=== PATIENT | male | born 2000 | race Two or more races ===

== ENCOUNTER 2024-05-17 23:50 | Emergency (ER) | payer BC, SELFPAY ==
[2024-05-18 00:15] VITALS: BP 166/92; PULSE 69; TEMP 36.9; O2SAT 95; BMI 34.3
--- NOTE | 2024-05-18 00:32 | PC.NURSE ---
this patient complains of under a lot of stress, working and going to college, this patient denies suicidal and homicidal thoughts and never has any in the past. this patient voices no other complaints and shows no signs of distress
--- NOTE | 2024-05-18 00:37 | PC.NURSE ---
Pt arrives stating that he just wants his mental health checked. Pt states that he just does not feel like he can correct himself States that when he was younger he used to be able to correct himself but now he is working night time nanny and in college and just feels like he cant get everything correct. Pt states that his mind is racing all the time. Pt states that he was diagnosed with ADHD as a child but did not take any meds because he as raised by his grandpa who did not believe in meds or trust health care. Pt states that he has 2 papers that are due tonight by midnight and he just could not get his thoughts together because his mind was racing. Pt messaged his professor and told him that he was going to be late turning it in. Pt states that he knows the consequences and accepts it. Pt does jump around when talking to him is triage but then pt will apologize for jumping around in his conversation. Pt remains pleasant and cooperative and gets tearful when talking. Pt again states that he just wants to get his mental health checked. When doing the suidical risk questions, pt states that he felt suicidal a few years ago when he was losing his apartment and had to move in with his mom. Pt states that they did not have a good relationship. Pt states that he did not act on a plan and was not able to make a plan. Pt jokes that his mind races to much to make a plan. Pt states that he has had problems sleeping but it because he can not shut his mind off.
--- NOTE | 2024-05-18 00:48 | ECG_ITS ---
[facility] Test Date: 2024-05-18 Pat Name: MATT STEVENSON Department: Room: - Gender: Male Product Development Specialist: : 2000 Requested By: [id number] Order Number: [id number] Reading MD: VIJI LUCAS Measurements Intervals [place] Rate: 55 P: 41 OK: 112 QRS: 85 QRSD: 108 T: 45 QT: 388 QTc: 377 Interpretive Statements 1100 Sinus rhythm 1102 Sinus arrhythmia 2210 Short OK interval 9150 abnormal ECG No previous ECG available for comparison Electronically Signed On 05-19-2024 5:28:12 EST by VIJI LUCAS
--- NOTE | 2024-05-18 00:51 | ED.PSYCH1 ---
HPI - Psych General Chief Complaint: Psychiatric Symptoms Stated Complaint: MENTAL HEALTH ISSUE Time Seen by Provider: 05/18/24 00:15 Source: Reports patient Mode of arrival: walk-in Limitations: Reports no limitations History of Present Illness HPI Narrative: This 24-year-old male presents for evaluation of several mental health issues. The patient is currently working full-time and going to school part-time. He started school last June. He is currently taking 1 class at a time. He states that he was working on a presentation for tomorrow but after reading the paragraphs and attempting to start answering the questions his mind started wandering. He states he cannot stop his mind from wandering and is not able to complete everything he needs to complete. He states he was diagnosed with ADHD when he was younger but he was raised by his grandfather who did not believe in traditional medicine or take him to physicians. He was given medication when he was younger but did not take it at that time. He denies that he is using any drugs or alcohol. He has having a hard time sleeping and states that he has been staying up all night to do his schoolwork and then going to work all day. He has been getting to work late and is at risk of losing his job. He currently lives alone and has been living alone on his own since he was 17. He states that due to his inability to focus at times he is falling behind in his bills and things are getting shut off. He denies any suicidal or homicidal ideation. He does have several anxiety related affectation's that are apparent while I am examining him. He admits to racing thoughts, inability to shut his mind off, poor impulse control at times which he does not wish to elaborate on. Related Data Home Medications ?Medication ?Instructions ?Recorded ?Confirmed No Known Home Medications 05/18/24 05/18/24 Allergies Allergy/AdvReac Type Severity Reaction Status Date / Time tide Allergy itching Uncoded 05/18/24 00:33 Review of Systems ROS Status of ROS 10 or more systems reviewed and unremarkable except as noted in history and below [facility] Medical History (Updated 05/18/24 @ 00:51 by Nila Dan MD) ADHD (attention deficit hyperactivity disorder) ?F90.9 - Attention-deficit hyperactivity disorder, unspecified type (ICD-10) Family History (Updated 05/18/24 @ 00:36 by Umm Chatterjee) Mother Depression Social History (Updated 05/18/24 @ 00:35 by Umm Chatterjee) Within the past year, how often did you have a drink containing alcohol: monthly or less Smoking status: Former smoker Do you use any of these nicotine containing products: vaping products Non-prescribed substance use: former substance user and cannabis (any form) Little interest or pleasure in doing things: nearly every day Feeling down, depressed, or hopeless: not at all Exam Narrative Exam Narrative: Vital signs and Nursing Notes reviewed: Patient is afebrile with a normal pulse, blood pressure is elevated at 166/92, he is not hypoxic with pulse ox of 95% on room air General: Well-appearing, well-groomed awake, alert, oriented, no acute distress, lying comfortably on the stretcher HEENT: Normocephalic atraumatic, mucous membranes are moist and pink, eyes are clear, normal conjunctiva, vision is grossly intact Chest: Lungs are clear to auscultation with good air entry, there is no wheezing rhonchi or rales appreciated no accessory muscle use, patient is speaking in complete sentences-no chest wall tenderness to palpation CVS: Regular rate and rhythm S1-S2, no murmurs rubs or gallops, pulses are brisk and equal bilaterally ABD: Soft, nondistended, nontender, no rebound guarding or rigidity, bowel sounds are normal, no pulsatile masses appreciated Extremities: Moving all extremities Skin: Normal in appearance without rash,pallor, petechiae or purpura Neuro: No focal deficits Psych: Patient admits to difficulty controlling his thoughts with at times poor impulse control, racing thoughts, poor sleeping patterns, difficulty concentrating and completing his tasks with associated anxiety and depression intermittently but denies any suicidal homicidal ideation, admits to a history of ADHD Constitutional Vital Signs, click to edit/add: Last Vital Signs Temp 98.5 F 05/18/24 00:15 Pulse 69 05/18/24 00:15 Resp 18 05/18/24 00:15 BP 166/92 H 05/18/24 00:15 Pulse Ox 95 05/18/24 00:15 O2 Del Method Room Air 05/18/24 00:15 Course Vital Signs Vital signs: Vital Signs Temperature 98.5 F 05/18/24 00:15 Pulse Rate 69 05/18/24 00:15 Respiratory Rate 18 05/18/24 00:15 Blood Pressure 166/92 H 05/18/24 00:15 Pulse Oximetry 95 05/18/24 00:15 Oxygen Delivery Method Room Air 05/18/24 00:15 Temperature 98.5 F 05/18/24 00:15 Pulse Rate 69 05/18/24 00:15 Respiratory Rate 18 05/18/24 00:15 Blood Pressure 166/92 H 05/18/24 00:15 Pulse Oximetry 95 05/18/24 00:15 Oxygen Delivery Method Room Air 05/18/24 00:15 MDM - Psych MDM Narrative Medical decision making narrative: This 24-year-old male presents for evaluation of intermittent racing thoughts, anxiety, depression, difficulty concentrating and having a hard time accomplishing tasks. He is working full-time and a part-time student. He is having a hard time sleeping. 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 He is now having second thoughts about doing that which is one of the reasons why he came [facility]. I explained to him that he should learn from this mistake. He is concerned that he may get fired. I agree that is a possibility could be a consequence of his actions however companies do not usually retaliate against arias alvarado's He is stable for discharge. He was given a dose of hydroxyzine to take tonight to help him relax and sleep and a prescription for hydroxyzine. He will be referred to outpatient [facility] behavioral health for further mental health evaluation Medical clearance labs are normal wit the exception of THC on h is drug screen. Lab Data Attestation: I reviewed the patient's lab results. Labs: Lab Results 05/18/24 05/18/24 Range/Units 01:10 01:19 WBC 9.8 (4.0-11.0) 10^3/uL RBC 5.12 (4.70-6.10) 10^6/uL Hgb 15.8 (14.0-18.0) g/dL Hct 45.3 (42.0-54.0) % MCV 88.5 (80.0-94.0) fL MCH 30.9 (25.9-34.0) pg MCHC 34.9 (29.9-35.2) g/dL RDW 12.0 (11.0-15.0) % Plt Count 315 (150-450) 10^3/uL MPV 9.8 (9.5-13.5) fL Neut % (Auto) 49.2 (43.0-75.0) % Lymph % (Auto) 41.5 (20.5-60.0) % Bladen % (Auto) 6.9 (1.7-12.0) % Eos % (Auto) 1.6 (0.9-7.0) % Baso % (Auto) 0.6 (0.2-2.0) % Neut # (Auto) 4.8 (1.4-6.5) 10^3/uL Lymph # (Auto) 4.1 H (1.2-3.8) 10^3/uL Bladen # (Auto) 0.7 (0.3-0.8) 10^3/uL Eos # (Auto) 0.2 (0.0-0.7) 10^3/uL Baso # (Auto) 0.1 (0.0-0.1) 10^3/uL Abs Immat Gran (auto) 0.02 (0.00-0.03) 10^3/uL Imm/Tot Granulo (auto) 0.2 (0.0-0.5) % Sodium 139 (136-145) mmol/L Potassium 3.6 (3.5-5.1) mmol/L Chloride 102 (98-107) mmol/L Carbon Dioxide 26.6 (21.0-32.0) mmol/L Anion Gap 14.0 BUN 11.0 (7.0-18.0) mg/dL Creatinine 0.91 (0.70-1.30) mg/dL Est GFR ( Amer) >60 (>=60 mL/min/1.73m^2) Est GFR (Non-Af Amer) >60 (>=60 mL/min/1.73m^2) BUN/Creatinine Ratio 12.1 Glucose 92 (74-106) mg/dL Calcium 9.0 (8.5-10.1) mg/dL Total Bilirubin 1.0 (0.2-1.0) mg/dL AST 12 L (15-37) U/L ALT 19 (16-63) U/L Alkaline Phosphatase 69 (46-116) U/L Total Protein 7.2 (6.4-8.2) g/dL Albumin 3.9 (3.4-5.0) g/dL Globulin 3.3 g/dL Albumin/Globulin Ratio 1.2 Salicylates <2.8 (<=19.9) mg/dL Urine Opiates Screen Negative (NEGATIVE) Ur Buprenorphine Scrn Negative (NEGATIVE) Ur Oxycodone Screen Negative (NEGATIVE) Urine Methadone Screen Negative (NEGATIVE) Acetaminophen <2.0 L (10.0-30.0) ug/mL Ur Barbiturates Screen Negative (NEGATIVE) U Tricyclic Antidepress Negative (NEGATIVE) Ur Phencyclidine Scrn Negative (NEGATIVE) Ur Amphetamines Screen Negative (NEGATIVE) U Methamphetamines Scrn Negative (NEGATIVE) U Benzodiazepines Scrn Negative (NEGATIVE) Urine Cocaine Screen Negative (NEGATIVE) U Cannabinoids Screen Positive A (NEGATIVE) Ethanol Quant <3 mg/dL ECG Data Attestation: I personally reviewed and interpreted this ECG as follows: (Sinus rhythm at 55 bpm, normal axis, normal intervals, no acute ST segment ovation or T wave inversion) Discharge Plan Discharge Chief Complaint: Psychiatric Symptoms Clinical Impression: Insomnia secondary to depression with anxiety Patient Disposition: Home, Self-Care Prescriptions / Home Meds: No Action No Known Home Medications Print Language: Romanian Referrals: Physician,Non-Staff, MD [Primary Care Provider] - 1 week Discharge Date/Time: 05/18/24 02:08
[2024-05-18 01:37] LABS: Basophils Absolute Auto 0.1 10^3/uL (0.0-0.1); Basophils Percent Auto 0.6 % (0.2-2.0); Eosinophils Absolute Auto 0.2 10^3/uL (0.0-0.7); Eosinophils Percent Auto 1.6 % (0.9-7.0); Hematocrit 45.3 % (42.0-54.0); Hemoglobin 15.8 g/dL (14.0-18.0); Immature Granulocytes Abs Auto 0.02 10^3/uL (0.00-0.03); Immature Granulocytes Pct Auto 0.2 % (0.0-0.5); Lymphocytes Absolute Auto 4.1 10^3/uL (1.2-3.8); Lymphocytes Percent Auto 41.5 % (20.5-60.0); Mean Corpuscular HGB Conc 34.9 g/dL (29.9-35.2); Mean Corpuscular Hemoglobin 30.9 pg (25.9-34.0); Mean Corpuscular Volume 88.5 fL (80.0-94.0); Mean Platelet Volume 9.8 fL (9.5-13.5); Monocytes Absolute Auto 0.7 10^3/uL (0.3-0.8); Monocytes Percent Auto 6.9 % (1.7-12.0); Neutrophils Absolute Auto 4.8 10^3/uL (1.4-6.5); Neutrophils Percent Auto 49.2 % (43.0-75.0); Platelet Count 315 10^3/uL (150-450); Red Blood Count 5.12 10^6/uL (4.70-6.10); White Blood Count 9.8 10^3/uL (4.0-11.0)
[2024-05-18 01:54] LABS: Amphetamine Screen Urine NEGATIVE (NEGATIVE); Barbiturates Screen Urine NEGATIVE (NEGATIVE); Benzodiazepines Screen Urine NEGATIVE (NEGATIVE); Buprenorphine Screen Urine NEGATIVE (NEGATIVE); Cannabinoid Screen Urine POSITIVE (NEGATIVE); Cocaine Screen Urine NEGATIVE (NEGATIVE); Methadone Screen Urine NEGATIVE (NEGATIVE); Methamphetamines Screen Urine NEGATIVE (NEGATIVE); Opiate Screen Urine NEGATIVE (NEGATIVE); Oxycodone Screen Urine NEGATIVE (NEGATIVE); Phencyclidine Screen Urine NEGATIVE (NEGATIVE); Tricyclic Antidepressant Urine NEGATIVE (NEGATIVE)
[2024-05-18] MEDS: HYDROXYZINE HCL 25 MG TABLET PO (01:56)
[2024-05-18 02:01] LABS: Alanine Aminotransferase 19 U/L (16-63); Albumin Globulin Ratio 1.2; Albumin Level 3.9 g/dL (3.4-5.0); Alkaline Phosphatase 69 U/L (46-116); Aspartate Amino Transferase 12 U/L (15-37); BUN Creatinine Ratio 12.1; Carbon Dioxide 26.6 mmol/L (21.0-32.0); Chloride 102 mmol/L (98-107); Estimated GFR (African America >60 (>=60 mL/min/1.73m^2); Estimated GFR (Non-African Ame >60 (>=60 mL/min/1.73m^2); Globulin 3.3 g/dL; Glucose 92 mg/dL (74-106); Potassium 3.6 mmol/L (3.5-5.1); Sodium 139 mmol/L (136-145); Total Protein 7.2 g/dL (6.4-8.2)
[2024-05-18 02:03] LABS: Acetaminophen <2.0 ug/mL (10.0-30.0); Salicylate <2.8 mg/dL (<=19.9)
[2024-05-18 02:04] LABS: Ethanol <3 mg/dL
--- NOTE | 2024-05-18 02:06 | PC.NURSE ---
i gave this patient verbal and paper discharge orders along with 1 Rx and 1 tab take home medication, this patient voices yes to understanding these. at time of discharge this patient voices no concerns and this patient shows no signs of distress
== END 2024-05-18 02:08 | disposition home or self-care (01) ==
PROVIDERS: Emergency Provider Emergency Medicine
DX: F41.8 Other specified anxiety disorders (principal); F51.05 Insomnia due to other mental disorder; Z87.891 Personal history of nicotine dependence
CPT/HCPCS: 36415; 80053; 80179; 80307; 80320; 80329; 85025; 93005; 99284

== ENCOUNTER 2025-01-25 10:38 | Emergency (ER) | payer OTHER, SELFPAY ==
[2025-01-25 10:43] VITALS: BP 149/98; PULSE 64; TEMP 37.2; O2SAT 97; BMI 35.9
--- OUTSIDE RECORDS SUMMARY | 2025-01-25 10:47 | XMS_ITS | Clinical Summary ---
Author Organization [facility] Address [address] [place] [address] Care Team Providers Care Chocolate Packer Name Role Phone Unavailable Primary Care Provider Unavailabl e Social History Tobacco UseTypesPacks/DayYears UsedDateSmoking Tobacco: Never AssessedSex and Gender InformationValueDate RecordedSex Assigned at BirthNot on fileLegal Sex Male06/05/2024 2:46 PM ESTGender IdentityNot on fileSexual OrientationNot on file Plan of Treatment Not on file Insurance
--- OUTSIDE RECORDS SUMMARY | 2025-01-25 10:47 | XMS_ITS | CCD ---
Author Organization [facility] Care Team Providers Care Cardiology Physician Assistant Name Role Phone DIAB ., JACOB Consulting Unavailable DIAB ., JACOB Admitting Unavailable DIAB ., JACOB Attending Unavailable BAILEY ., SANTI Admitting Unavailable BAILEY ., SANTI Attending Unavailable REQUEST, NONE LISTED Primary Care Unavaila ble BAILEY ., SANTI Consulting Unavailable Unavailable Primary Care Provider Unavaillionel e Destiny Mosley APRN Attending Provider [phone] Destiny Mosley Attending Unavailable Destiny Mosley Admitting Unavailable Cathleen Sanchez APRN Attending Provider NON STAFF Primary Care Provider Unavailabl e Medications Current Medications MedicationDrug Class(es)DatesSig (Normalized)Sig (Original)Elmer (No Known Home Meds) (3 sources)Start: 54-61-5485Ja Name (No Known Home Meds) Active July 10, 2024 12:00am Completed/Discontinued Medications MedicationDrug Class(es)DatesSig (Normalized)Sig (Original)24 hr buPROPion hydrochloride 150 mg extended release oral tablet (3 sources)AminoketoneStart: 07-10-2024 End: 43-17-2311upju 1 tablet by mouth every twenty-four hoursBupropion Hcl 150 mg tablet extended release 24 hr Discontinued MG PO July 10, 2024 12:00am 2024 12:50pmStart: 07-10-2024 End: 81-55-4234ewcn 1 tablet by mouth every twenty-four hoursBupropion Hcl 150 mg tablet extended release 24 hr Discontinued MG PO July 10, 2024 12:00am 2024 12:50pm Problems Problem ClassificationProblemDateDocumented DateEpisodic/ChronicImmunizations and screening for infectious disease (6 sources)At risk of sexually transmitted infection ; Translations: [Contact with and (suspected) exposure toinfections with a predominantly sexual mode of transmission]Onset: 19-20-620577739435-15-6412WuoeojscZgpab upper respiratory infections (5 sources)Acute pharyngitis, unspecified; Translations: [Streptococcal pharyngitis]Onset: 02-31-0584Zvtxbyna Results Test NameValueInterpretationReference RangeFacilityNo Panel InformationOrdered By: Cathleen Sanchez on 05-86-2726Gdhss Strep (POC)[facility] CampusChlamydia/GC/Trich NAAon 76-16-2538Falxfmyab Trachomotis, NAANegative NormalNegativeThe [facility] Physician GroupComment on above:Performed By: #### GCCHLAMTRI #### [facility] ,Neisseria Gonorrhoeae, NAANegativeNormalNegativeThe [facility] Comment on above:Performed By: #### GCCHLAMTRI #### [facility] ,Trichomonas NAANegativeNormalNegativeThe [facility] Physician GroupComment on above:Result Comment: Performed at: = - [facility] [address] [id number] Spa Receptionist: Luh Merritt MD, Phone: [phone] PERFORMED BY: [address] [address] PATHOLOGIST AUTOMOBILE TAILLIGHT ASSEMBLER DARIAN BERG M.D.Performed By: #### GCCHLAMTRI #### [facility] ,STREPT SCREENon 61-13-5542LKEIB SCREEN APositiveAbnormalNEGATIVEThe [facility] HospitalComment on above:Performed By: #### SSCRN #### [facility] [address], [place] [address] Dr. Brianna Richards Vital Signs Date TimeVital SignValuePerforming SlhwmfcqiHxykfgoh57-33-5061 09:090400Body macbmq115.96 Avtar Sanchez APRN Work Phone: [facility]08-25-2025 09:09-0400 Body mass index (BMI) [Ratio]35 kg/z0YxdnvvCathleen Sanchez APRN Work Phone: [phone] [place], [place] 4661908-25-2025 09:09-0400 Body alkjjhscaoi29.9 [degF]Cathleen Snachez APRN Work Phone: [phone]08-25-2025 09:09-0400 Body pkywsa936.83 kgCathleen Sanchez APRN Work Phone: [phone]08-25-2025 09:09-0400 Diastolic blood mm[Hg]Cathleen Sanchez APRN Work Phone: [phone] [place], [place] [address]08-25-2025 09:09-0400 Heart rate82 /Tanvir Sanchez APRN Work Phone: [phone] [place], [place] 6192408-25-2025 09:09-0400 Respiratory rate16 /Tanvir Sanchez APRN Work Phone: [phone] [place], [place] [address]2408-25-2025 09:09-0400 SaO2% (BldA) [Mass fraction]98 %Cathleen Sanchez APRN Work Phone: [phone] [place], [place] [address]08-25-2025 09:09-0400 Systolic blood bajjfytr449 mm[Hg]Cathleen Sanchez APRN Work Phone: [phone]04-07-2025 12:44-0400 Body dzbayj247.96 cmTr[facility] Health [facility] Campus04-07-2025 12:44-0400Body mass index (BMI) [Ratio]35.3 kg/l5KxzenlfxkTrinity Health System East Campus04-07-2025 12:44-0400Body vhuqleurlfd39.4 [degF][facility]04-07-2025 12:44-0400Body dyuync295.73 kgTrinity Health System [facility] Campus04-07-2025 12:44-0400Diastolic blood qkhwcivq28 mm[Hg][facility] 07-10-2024 12:44-0400Heart rate70 /minTr[facility] Health System [facility] Campus 07-10-2024 12:44-0400Respiratory rate14 /minTr[facility] Health System [facility] Campus 07-10-2024 12:44-5747YsP1% (BldA) [Mass fraction]97 %[facility]04-07-2025 12:44-0400Systolic blood cdvmoyoe731 mm[Hg][facility] Encounters Encounter DateEncounter TypeCare ProviderFacilityStart: 11-27-2024 End: 17-04-4507ycsvwtrfidJJD [place] Work Phone: Start: 11-27-2024 End: 21-00-4287Exxajym encounter procedureCathleen Bartholomew APRN-[facility] Work Phone: Start: 07-10-2024 End: 81-76-4510Feblkcpj ReferredDestiny Mosley APRN Work Phone: [facility] Work Phone: Start: 07-10-2024 End: 64-27-3385rpjkwgyhsiNqhkteUniversity Hospitals [facility] Work Phone: Start: 07-10-2024 End: 20-38-9798Zzwqoff encounter procedureBetsy Johnson [facility] Physician [facility] Work Phone: Start: 06-05-2024 End: 99-17-7619Fudecahrn encounterRosana Hays NP Work Phone: [facility] FM 230Comment on above:Appointment Request Start: 07-26-2022 End: 00-23-9982tovtfnrvytVUXEB LEWIS .Facility:Y1Ezcsg: 07-14-2022 End: 99-14-0463nlhmlcdvntUJWGGS DIAB .Facility: Procedures DateProcedureProcedure DetailPerforming ClinicianStart: 46-35-4557Dtaeo Strep (POC)Cathleen Sanchez APRN Work Phone: Plan of Treatment DateCare ActivityDetailAuthorStart: 83-58-2446QlizikmfoTrinity Health System East Campus Chlamydia trachomatis DNA [Presence] in Unspecified specimen by KONG with probe detectionTrinity Health System East CampusNeisseria gonorrhoeae DNA [Presence] in Unspecified specimen by KONG with probe detectionTrinity Health System East CampusTrichomonas vaginalis DNA [Presence] in Unspecified specimen by KONG with probe detectionTrinity Health System East Campus Payers DatePayer CategoryPayerPolicy [id number] Social History DateTypeDetailFacilityTobacco smoking status NHISTobacco smoking consumption unknownPRIMARY CHILDR[facility] HealthcareStart: 58-26-1033Let assigned at birthNot on [facility], ColumbiaGender identityNot on [facility], ColumbiaStart: 61-73-2390Atqyxgu smoking status NHISCurrent some day smokerTrinity Health System East Campus Start: 07-10-2024 End: 05-58-3177JyfKbhs (finding)[facility] Centertart: 31-70-9955Fvj Assigned At BirthMalMetroHealth Cleveland Heights Medical Centertart: 02-51-0569Kpvfngc smoking status NHISSmokes tobacco daily (finding)[facility] Evaluation note 07-10-2024 Note Date & FgkrCzqoOlnrgsft28-83-5603 Evaluation note* Diagnosis Onset Date Resolution Status Admit Date Possible exposure to STI acuteApril 2024 12:15pm [facility] Work Phone: Telephone encounter Note 06-05-2024 Note Date & TdipJonhWcyojhci85-77-4555 Telephone encounter Note* Telephone Encounter - Harleen Landers - 06/05/2024 2:50 PM EST P/c to schedule new pt appointment with Rosana. Pt asked if he could schedule with someone else. I said I would have to resubmit new pt questionnaire and get their approval. Pt requested appointment with Dr. Brooks. Placed questionnaire in Dr. Brooks's folder. [facility] Note 06-05-2024 Note Date & SaxkShxwBtkcckfn66-47-4838 Miscellaneous Notes* Telephone Encounter - Harleen Anshul - 06/05/2024 2:50 PM EST P/c to schedule new pt appointment with Rosana. Pt asked if he could schedule with someone else. I said I would have to resubmit new pt questionnaire and get their approval. Pt requested appointment with Dr. Brooks. Placed questionnaire in Dr. Brooks's folder. documented in this encounterNOKY Healthcare Evaluation note Note Date & TypeNoteFacilityEvaluation note* Diagnosis Onset Date Resolution Status Admit Date Possible exposure to STI acuteApr2024 12:15pm [facility] Work Phone: Evaluation note Note Date & TypeNoteFacilityEvaluation noteNo assessment information available [facility] Work Phone: Reason for referral (narrative) Note Date & TypeNoteFacilityReason for referral (narrative)No reason for referral information availableSelect Medical [facility] Work Phone: Summary Purpose Family History No Family History Records FoundNo Family History Records Found Advance Directives Advance Directive Response Recorded Date/ Time Advance Directives No July 10 12:15pm Chief Complaint and Reason for Visit Chief Complaint Admit Date STD check July 10, 2024 12:1 5pm Reason for Visit Admit Date Possible exposure to STI July 10, 2024 12:15pm Chief Complaint Admit Date Sore throat November 27, 2024 9: 08am Additional Source Comments (unrecognized sect ion and content) No Status Records FoundNo Status Records Found INFORMATION SOURCE (unrecogn ized section and content) DATE CREATED AUTHOR 07/29/2022 [facility] DATE CREATED AUTHOR AUTHOR'S ORGANIZ ATION 07/14/2024 [facility] Reason for Visit (unrecogniz ed section and content) ReasonOnset DateCommentsAppointment Mbkhuso7606/05/2024 Care Teams (unrecognized sec tion and content) Team Status: Active Member Role Status Dates NON STAFF Primary Care Provider Active Team Status: Inactive Member Role Status Dates Destiny Mosley APRN Attending Provider Active S tart: July 10, 2024 End: July 10, 2024[facility] Care ProviderActiveStart: July 10, 2024 End: July 10, 2024 Team Status: Inactive Member Role Status Dates Destiny Mosley APRN Attending Provider Active S tart: July 10, 2024 End: July 10, 2024 Team Status: Inactive Member Role Status Dates Cathleen Sanchez APRN Attending Provider Active Start: November 27, 2024 End: November 27, 2024NON [facility] ProviderActiveStart: November 27, 2024 End: November 27, 2024 Goals (unrecognized section and content) Goals may be documented in a n alternate sectionGoals may be documented in an alternate sectionGoals may be documented in an alternate section FOR RECORDS PERTAINING TO PATIENTS WHO ARE OR HAVE BEEN ENROLLED IN A CHEMICAL DEPENDENCY/SUBSTANCEABUSE PROGRAM, SOME INFORMATION MAY BE OMITTED. This clinical summary was aggregated from multiple sources. Caution should be exercised in using it in the provision of clinical care. This summary normalizes information from multiple sources, and as a consequence, information in this document may materially change the coding, format and clinical context of patient data. In addition, data may be omitted in some cases. CLINICAL DECISIONS SHOULD BE BASED ON THE PRIMARY CLINICAL RECORDS. [facility] [employer] [facility]. provides no warranty or guarantee of the accuracy or completeness of information in this document.
[2025-01-25 10:50] VITALS: O2SAT 97
--- NOTE | 2025-01-25 10:52 | ED_ITS ---
HPI HPI - General Adult General Chief complaint: Extremity Injury, Lower Stated complaint: LOWER EXTREMITY INJURY - BRUISE Time Seen by Provider: 01/25/25 10:41 Source: patient Mode of arrival: walk-in Limitations: no limitations History of Present Illness HPI narrative: 25-year-old male presented to the emergency department for bruising. It is on his right lower leg. He had hit his leg somewhat below the knee about 2 weeks ago and since then he has had a swollen hard area and now it is becoming bruised inferior to it. He has no calf pain or swelling. He has no personal history of DVT. Related Data Home Medications ?Medication ?Instructions ?Recorded ?Confirmed No Known Home Medications 05/18/2401/04 Allergies Allergy/AdvReac Type Severity Reaction Status Date / Time tide Allergy itching Uncoded 01/25/25 10:46 Opioid HPI Opioid Management Most Recent Opioid Data: Last Pain Scale 2 Today, 10:43 Ur Phencyclidine Scrn, (NEGATIVE) Negative , 01:19 Review of Systems ROS Narrative A ten point review of systems is negative except as noted above. PFSH PFSH Medical History (Updated 01/25/25 @ 10:51 by Avinash George MD) ADHD (attention deficit hyperactivity disorder) ?F90.9 - Attention-deficit hyperactivity disorder, unspecified type (ICD-10) Family History (Updated 05/18/24 @ 00:36 by Umm Chatterjee) Mother Depression Social History (Updated 05/18/24 @ 00:35 by Umm Chatterjee) Within the past year, how often did you have a drink containing alcohol: monthly or less Smoking status: Former smoker Do you use any of these nicotine containing products: vaping products Non-prescribed substance use: former substance user and cannabis (any form) Little interest or pleasure in doing things: not at all Feeling down, depressed, or hopeless: not at all Exam Narrative Exam Narrative: Nurses note and vital signs reviewed General:The patient appears well and in no apparent distress.Patient is resting comfortably on cart. Skin:Warm, dry, no pallor noted.There is no rash noted. Head:Normocephalic, atraumatic Eye: Normal conjunctiva, no drainage Ears, Nose, Mouth, and Throat: oral mucosa is moist. Nares patent. Cardiovascular:Regular Rate and Rhythm Respiratory:Patient is in no distress, no accessory muscle use Back:non-tender GI: Soft and nontender Musculoskeletal: The right knee and ankle are nontender. She has a raised nonfluctuant tender area inferior and slightly medial to the knee. There is no opening in the skin. She has purple color bruising going distal approximately retirement from his knee to the ankle. No calf tenderness or swelling or masses. Neurological: Awake and alert Psychiatric:Cooperative Constitutional Vital Signs, click to edit/add: Last Vital Signs Temp 98.9 F 01/25/25 10:43 Pulse 64 01/25/25 10:43 Resp 18 01/25/25 10:43 BP 149/98 H 01/25/25 10:43 Pulse Ox 97 01/25/25 10:50 O2 Del Method Room Air 01/25/25 10:50 Course Vital Signs Vital signs: Vital Signs Temperature 98.9 F 01/25/25 10:43 Pulse Rate 64 01/25/25 10:43 Respiratory Rate 18 01/25/25 10:43 Blood Pressure 149/98 H 01/25/25 10:43 Pulse Oximetry 97 01/25/25 10:43 Oxygen Delivery Method Room Air 01/25/25 10:43 Temperature 98.9 F 01/25/25 10:43 Pulse Rate 64 01/25/25 10:43 Respiratory Rate 18 01/25/25 10:43 Blood Pressure 149/98 H 01/25/25 10:43 Pulse Oximetry 97 01/25/25 10:50 Oxygen Delivery Method Room Air 01/25/25 10:50 Medical Decision Making MDM Narrative Medical decision making narrative: My clinical impression is that he has a hematoma and bruising. I have no clinical suspicion of DVT which was his main concern and he was reassured. Treatment diagnosis and follow-up were discussed with the patient. Differential Diagnosis Differential Diagnosis: Hematoma, bruise Discharge Plan Discharge Chief Complaint: Extremity Injury, Lower Clinical Impression: Hematoma Patient Disposition: Home, Self-Care Time of Disposition Decision: 10:51 Condition: Good Mode of Transportation: Private Vehicle Prescriptions / Home Meds: No Action No Known Home Medications Print Language: [place] Instructions: Hematoma (ED) Referrals: Physician,Non-Staff, MD [Primary Care Provider] - 1 week
== END 2025-01-25 11:02 | disposition home or self-care (01) ==
PROVIDERS: Emergency Provider Emergency Medicine
DX: S80.11XA Contusion of right lower leg, initial encounter (principal)
CPT/HCPCS: 99281